=== PATIENT | female | born 1960 | race Caucasian/White ===

== ENCOUNTER → 2017-05-21 | Outpatient (CLI) | payer OTHER ==
--- NOTE | 2017-05-26 11:38 | RSPPFT ---
DATE OF PROCEDURE: 05/21/17 COMMENTS: Spirometry shows FVC of 2.5 at 74% of predicted, FEV1 of 1.4 at 52%, FEV1/FVC ratio is decreased. Flow is decreased at FEF 25, FEF 50, FEF 75 and FEF 25-75. There is a good response after acutely inhaled bronchodilator treatment. Lung volumes show residual volume is increased. TLC is normal. Diffusion capacity is decreased. Flow volume loop indicates an obstructive pattern. 6-minute walk test shows no de-saturation. IMPRESSION: 1. Moderately severe obstructive lung disease. 2. Good response after bronchodilator treatment. 3. Lung volumes show mild hyperinflation. 4. Mild decreased in diffusion capacity. 5. 6-minute walk test shows no de-saturation.
== END ==
LOC: HRSP 09:36
PROVIDERS: ATTEND Specialist
DX: J44.9 Chronic obstructive pulmonary disease, unspecified (principal)
CPT/HCPCS: 94060; 94618; 94726; 94729